=== PATIENT | male | born 1980 | race Caucasian/White ===

== ENCOUNTER → 2023-06-13 | Emergency (ER) | payer SELFPAY ==
[~2023-06-13] MED LIST: LORazepam 2 MG/ML VIAL ONE
--- OUTSIDE RECORDS SUMMARY | 2023-06-13 22:29 | XMS REPORT | Continuity of Care Document ---
Author Name Unknown Address [address] [place] [address] th[address] Address [address] [facility] 1 [address] [place] [address] Care Team Providers Care Foreign Food Cook Specialty Name Role Phone PCP, PATIENT DOES NOT HAVE A Primary Care Physic katt Unavailable FELICIA SLAUGHTER Attending Clinician Unavailable FELICIA SLAUGHTER Attending Clinician Unavailable Bryant Azar MD Attending Clinician [phone] [email or web address] Attending Clinician Unavailab BRYANT Steiner Admitting Clinician Unavailable [email or web address] Admitting Clinician Unavailab ivett Payers Payer Name Policy Type Policy Number Effective Date Expirati on Date Source [employer] PAID BY EMPLOYER - GENERIC PENDING 2023 00:00:00 [employer] (DIRECT BILL) (HGMDA) [id number] Problems Condition Name Condition Details Condition Category Status Onset Date Resolution Date Last Treatment Date Treating Clinician Comments Source Anxiety Anxiety Disease Active 2022-06 00:00: 00 [facility] Chest pain in adult Chest pain in adult Disease Active 2022-06 00:00: 00 [facility] Allergies, Adverse Reactions, Alerts Allergy Name Allergy Type Status Severity Reaction(s) Onset Date Inactive Date Treating Clinician Comments Source Iodinate d Contrast Media Propensi ty to adverse reaction s Active Nausea and/or Vomiting 2022-06 00:00: 00 [facility] IODINATE D CONTRAST MEDIA Drug Class Active N/V 2022-06 00:00: 00 [facility] Social History Social Habit Start Date Stop Date Quantity Comments Source [facility] At 1980 00:00:00 1980 00:00:00 [facility] Smoking Status Start Date Stop Date Source Tobacco smoking consumption unknown [facility] Medications Ordered Medication Name Filled Medication Name Start Date Stop Date Current Medication? Ordering Clinician Indication Dosage Frequency Signature (SIG) Comments Components Source maalox:diph enhydrAMINE :lidocaine 2 % viscous 1:1:1 (FIRST-MOUT HWASH BLM) oral suspension 15 mL 2022-06 15:30: 00 06-07 15:01 :00 No 15mL 15 mL, Oral, ONCE, 1 dose, On 06/07/23 at 0930, REBECCA [facility] hydrOXYzine (ATARAX) tablet 25 mg 2022-06 14:45: 00 06-07 15:01 :00 No 25mg 25 mg, Oral, ONCE, 1 dose, On 06/07/23 at 0845, REBECCA [facility] aspirin chewable tablet 324 mg 2022-06 11:30: 00 06-07 11:39 :00 No 324mg 324 mg, Oral, ONCE, 1 dose, On 06/07/23 at 0530, STAT [facility] aspirin 81 mg chewable tablet 2022-06 05:25: 28 Yes 81mg Take 1 tablet by mouth in the morning. [facility] hydrOXYzine 25 mg tablet 2022-06 00:00: 00 06-10 05:59 :00 Yes [id number] 25mg Take 1 tablet by mouth every 6 (six) hours as needed for Itching or Anxiety for up to 2 days. [facility] Vital Signs Vital Name Observation Time Observation Value Comments Nicole morillo Systolic blood pressure 2023-06-07 14:00:00 144 mm[Hg] [facility] Diastolic blood pressure 2023-06-07 14:00:00 72 mm[Hg] [facility] Heart rate 2023-06-07 14:00:00 60 /min [facility] Respiratory rate 2023-06-07 14:00:00 20 /min [facility] Oxygen saturation in Arterial blood by Pulse oximetry 2023-06-07 14:00:00 94 /min [facility] Body weight 2023-06-07 11:06:00 113.399 kg [facility] Procedures Procedure Date / Time Performed Performing Clinicia n Source TROPONIN I 2023-06-07 15:37:00 Felicia Slaughter [facility] EKG-12 LEAD 2023-06-07 13:14:41 Doe Bryant [facility] XR CHEST 2 VW 2023-06-07 11:50:25 Doe Bryant [facility] TROPONIN I 2023-06-07 11:34:00 Doe Bryant [facility] COMP. METABOLIC PANEL ([id number]) 2023-06-07 11:34:00 King Bryant [facility] CBC WITH DIFF 2023-06-07 11:34:00 [facility] Encounters Start Date/Time End Date/Time Encounter Type Admission Type Attending [facility] Care Facility Care Department Encounter ID Source 2023-06-07 05:10:00 2023-06-07 10:52:00 Emergency X FELICIA SLAUGHTER [facility] ERT [id number] [facility] 2023-06-07 05:10:00 2023-06-07 10:52:00 Emergency Bryant Azar [facility] [id number] [facility] 2020-10-27 10:23:00 2020-10-27 10:23:00 Outpatient GC_HGMDA_Go nzalezJ [facility] [id number] [facility] 2020-10-24 04:30:00 2020-10-24 04:30:00 Outpatient GC_HGMDA_Go nzalezJ [facility] [id number] [facility]
[2023-06-13 23:16] LABS: Absolute Lymphocytes (CBC) 1.5 K/uL (0.7-4.9); Hematocrit 43.3 % (39.6-49.0); Lymphocytes % 16.1 % (15.3-44.8); MCV 88.9 fL (80-100); MPV 8.2 fL (7.6-11.3); Platelets 220 thou/uL (152-406); RBC Red Blood Cell Count 4.87 M/uL (4.33-5.43)
[2023-06-13 23:58] LABS: ALT/SGPT 101 U/L (16-61); AST/SGOT 42 U/L (15-37); Albumin 3.5 g/dL (3.4-5.0); Alkaline Phosphatase 113 U/L (45-117); BUN Blood Urea Nitrogen 13 mg/dL (7-18); Bicarbonate 23 mEq/L (21-32); Bilirubin Total 0.4 mg/dL (0.2-1.0); Glomerular Filtration Rate 92 ml/min (=/>90); Glucose Level 149 mg/dL (74-106); NT PRO-BNP 6 pg/mL (<125); Potassium 3.5 mEq/L (3.5-5.1); Protein, Total 7.4 g/dL (6.4-8.2); Sodium Level 136 mEq/L (136-145); Troponin High Sensitivity 6.8 pg/mL (<58.9)
[2023-06-14 00:04] LABS: Bilirubin Direct < 0.1 mg/dL (0-0.2); Bilirubin Indirect, Calculated ND mg/dL (0.2-0.8)
--- NOTE | 2023-06-14 01:45 | ER ---
Nurse's Notes [facility] Name: Joey Cotton Age: 42 yrs Sex: Male : 1980 Arrival Date: 06/13/2023 Time: 22:25 Bed 13 Private MD: Diagnosis: Dyspnea, anxiety attack Presentation: 06/13 22:56 Chief complaint: EMS states: patient became short of breath at work and was tm6 experiencing palpitations. Patient took nitro x2 prior to EMS arrival. When EMS arrived, SBP was 90. EMS gave 300cc NS bolus. Coronavirus screen: Client denies travel out of the [place] in the last 14 days. Ebola Screen: Patient negative for fever greater than or equal to 101.5 degrees Fahrenheit, and additional compatible Ebola Virus Disease symptoms Patient denies exposure to infectious person. Patient denies travel to an Ebola-affected area in the 21 days before illness onset. No symptoms or risks identified at this time. Initial Sepsis Screen: Does the patient meet any 2 criteria? No. Patient's initial sepsis screen is negative. Does the patient have a suspected source of infection? No. Patient's initial sepsis screen is negative. Risk Assessment: Do you want to hurt yourself or someone else? Patient reports no desire to harm self or others. Onset of symptoms was June 13, 2023. 22:56 Method Of Arrival: EMS: [facility] 6 22:56 Acuity: JIHAN 3 tm6 Triage Assessment: 23:05 General: Appears uncomfortable, Behavior is cooperative, anxious. Pain: Denies pain. tm6 EENT: No signs and/or symptoms were reported regarding the EENT system. Neuro: Level of Consciousness is awake, alert, obeys commands, Oriented to person, place, time, situation. Cardiovascular: Capillary refill < 3 seconds Patient's skin is warm and dry. Rhythm is sinus rhythm. Respiratory: Reports shortness of breath at rest Airway is patent Respiratory effort is even, unlabored, Respiratory pattern is regular, symmetrical, Onset: The symptoms/episode began/occurred today, the patient has mild shortness of breath. GI: Abdomen is flat, non-distended. : No signs and/or symptoms were reported regarding the genitourinary system. Derm: No signs and/or symptoms reported regarding the dermatologic system. Musculoskeletal: No signs and/or symptoms reported regarding the musculoskeletal system. Historical: - Allergies: 23:05 Iodinated Contrast Media - IV Dye; tm6 - PMHx: 23:05 Hypertensive disorder; tm6 - PSHx: 23:05 Cholecystectomy; Stented artery; tm6 - Immunization history:: Client reports having NOT received the Covid vaccine. Flu vaccine is not up to date. It has been more than one year since last vaccine. - Social history:: Smoking status: Patient reports use of chewing tobacco. Patient/guardian denies using alcohol. Screenin:07 [facility] ED Fall Risk Assessment (Adult) History of falling in the last 3 months, tm6 including since admission No falls in past 3 months (0 pts). Abuse screen: Denies threats or abuse. Denies injuries from another. Nutritional screening: No deficits noted. Tuberculosis screening: No symptoms or risk factors identified. Assessment: 23:07 Reassessment: see triage assessment. tm6 23:39 Reassessment: Patient appears in no apparent distress at this time. Patient and/or tm6 family updated on plan of care and expected duration. Pain level reassessed. Patient is alert, oriented x 3, equal unlabored respirations, skin warm/dry/pink. 06/14 00:07 Reassessment: patient stated he feels anxious. "I feel like my heart is beating fast tm6 and I'm gasping for breath.". 00:45 Reassessment: Patient reports no longer feeling anxious. tm6 01:39 Reassessment: Patient and/or family updated on plan of care and expected duration. Pain tm6 level reassessed. Patient is alert, oriented x 3, equal unlabored respirations, skin warm/dry/pink. Patient states feeling better. 02:00 Reassessment: Patient appears in no apparent distress at this time. Patient states tm6 feeling better. Vital Signs: 06/13 22:56 BP 134 / 79; Pulse 73; Resp 17; Temp 99.4(O); Pulse Ox 96% on R/A; Weight 117.03 kg; tm6 Height 6 ft. 1 in. ; Pain 0/10; 23:38 BP 129 / 75; Pulse 64; Resp 15; Pulse Ox 98% on R/A; tm6 06/14 00:07 BP 135 / 87; Pulse 73; Resp 12; Pulse Ox 96% on R/A; tm6 00:45 BP 126 / 81; Pulse 71; Resp 19; Pulse Ox 97% on R/A; tm6 01:39 BP 120 / 80; Pulse 58; Resp 13; Pulse Ox 96% on R/A; tm6 01:59 BP 118 / 73; Pulse 73; Resp 21; Pulse Ox 98% on R/A; tm6 06/13 22:56 Body Mass Index 34.04 (117.03 kg, 185.42 cm) tm6 06/13 22:56 Pain Scale: Adult tm6 ED Course: 06/13 22:31 Patient arrived in ED. jb4 22:33 Gagan Ferris MD is Attending Physician. sp3 22:44 Maryse Miller, RN is Primary Nurse. tm6 22:48 XRAY Chest (1 view) In Process Unspecified. EDMS 22:58 Triage completed. tm6 23:05 Arm band placed on right wrist. EKG completed in triage. Results shown to MD. tm6 23:07 Patient has correct armband on for positive identification. Bed in low position. Call tm6 light in reach. Side rails up X2. Provided Education on: plan of care. Client placed on continuous cardiac and pulse oximetry monitoring. NIBP monitoring applied. site monitor on. Door closed. Noise minimized. Lights dimmed. Warm blanket given. 23:07 No provider procedures requiring assistance completed. Maintain EMS IV. Dressing tm6 intact. Good blood return noted. Site clean \\T\\ dry. Gauge \\T\\ site: 20g RAC. 06/14 02:01 IV discontinued, intact, bleeding controlled, No redness/swelling at site. Pressure tm6 dressing applied. Administered Medications: 00:06 Drug: Ativan IVP 1 mg IVP once Route: IVP; Site: right antecubital; tm6 Medication: 06/13 23:07 VIS not applicable for this client. tm6 Outcome: 06/14 01:45 Discharge ordered by . sp3 02:01 Discharged to home ambulatory, tm6 02:01 Condition: stable 02:01 Discharge instructions given to patient, Instructed on discharge instructions, follow up and referral plans. Demonstrated understanding of instructions, follow-up care, 02:10 Patient left the ED. tm6 Signatures: Dispatcher [employer] [facility] Naveen Perez, JENNIFER RN jb4 Gagan Ferris MD MD sp3 Maryse Miller, RN RN tm6
--- NOTE | 2023-06-14 01:45 | EDPHYS ---
Physician Documentation [facility] Name: Joey Cotton Age: 42 yrs Sex: Male : 1980 Arrival Date: 06/13/2023 Time: 22:25 Bed 13 Private MD: ED Physician Gagan Ferris HPI: 06/13 22:47 This 42 yrs old Male presents to ER via Unassigned with complaints of "anxiety attack" sp3 shortness of breath. 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 Patient states that he took some "dip" and after that he became anxious. This happened 1 week ago when he also took the same tobacco product. All symptoms are now resolved. Patient did not and currently does not have chest pain, back pain, jaw pain, left arm pain, or any other anginal equivalents. All symptoms are fully resolved at this point. Review of systems are negative for headache, fever, URI symptoms, cough, chest pain, back pain, abdominal pain, nausea, vomiting, diarrhea, syncope, near syncope, known sick contacts, travel history, prolonged immobilization, or any other signs or symptoms at this time.. Historical: - Allergies: 23:05 Iodinated Contrast Media - IV Dye; tm6 - PMHx: 23:05 Hypertensive disorder; tm6 - PSHx: 23:05 Cholecystectomy; Stented artery; tm6 - Immunization history:: Client reports having NOT received the Covid vaccine. Flu vaccine is not up to date. It has been more than one year since last vaccine. - Social history:: Smoking status: Patient reports use of chewing tobacco. Patient/guardian denies using alcohol. ROS: 22:48 Constitutional: Negative for fever, chills, and weight loss, Eyes: Negative for injury, sp3 pain, redness, and discharge, ENT: Negative for injury, pain, and discharge, Neck: Negative for injury, pain, and swelling, Abdomen/GI: Negative for abdominal pain, nausea, vomiting, diarrhea, and constipation, Back: Negative for injury and pain, MS/Extremity: Negative for injury and deformity, Skin: Negative for injury, rash, and discoloration, Neuro: Negative for headache, weakness, numbness, tingling, and seizure, Psych: Negative for depression, anxiety, suicide ideation, homicidal ideation, and hallucinations, Allergy/Immunology: Negative for hives, rash, and allergies, Endocrine: Negative for neck swelling, polydipsia, polyuria, polyphagia, and marked weight changes, Hematologic/Lymphatic: Negative for swollen nodes, abnormal bleeding, and unusual bruising, 22:48 All other systems are negative, Exam: 22:48 Constitutional: This is a well developed, well nourished patient who is awake, alert, sp3 and in no acute distress. Head/Face: Normocephalic, atraumatic. Eyes: Pupils equal round and reactive to light, extra-ocular motions intact. Lids and lashes normal. Conjunctiva and sclera are non-icteric and not injected. Cornea within normal limits. Periorbital areas with no swelling, redness, or edema. ENT: Nares patent. No nasal discharge, no septal abnormalities noted. External auditory canals are clear. Oropharynx with no redness, swelling, or masses, exudates, or evidence of obstruction, uvula midline. Mucous membranes moist. Neck: Trachea midline, no thyromegaly or masses palpated, and no cervical lymphadenopathy. Supple, full range of motion without nuchal rigidity, or vertebral point tenderness. No Meningismus. Chest/axilla: Normal chest wall appearance and motion. Nontender with no deformity. No lesions are appreciated. Cardiovascular: Regular rate and rhythm with a normal S1 and S2. No gallops, murmurs, or rubs. Normal PMI, no JVD. No pulse deficits. Respiratory: Lungs have equal breath sounds bilaterally, clear to auscultation and percussion. No rales, rhonchi or wheezes noted. No increased work of breathing, no retractions or nasal flaring. Abdomen/GI: Soft, non-tender, with normal bowel sounds. No distension or tympany. No guarding or rebound. No evidence of tenderness throughout. Back: No spinal tenderness. No costovertebral tenderness. Full range of motion. Skin: Warm, dry with normal turgor. Normal color with no rashes, no lesions, and no evidence of cellulitis. MS/ Extremity: Pulses equal, no cyanosis. Neurovascular intact. Full, normal range of motion. Neuro: Awake and alert, GCS 15, oriented to person, place, time, and situation. Cranial nerves II-XII grossly intact. Motor strength 5/5 in all extremities. Sensory grossly intact. Cerebellar exam normal. Normal gait. Psych: Awake, alert, with orientation to person, place and time. Behavior, mood, and affect are within normal limits. 22:48 ECG was reviewed by the Attending Physician. EKG demonstrates normal sinus rhythm at 76 bpm with normal intervals, normal axis, normal QRS, nonspecific diffuse ST/T's changes without evidence of acute ischemia. Vital Signs: 22:56 BP 134 / 79; Pulse 73; Resp 17; Temp 99.4(O); Pulse Ox 96% on R/A; Weight 117.03 kg; tm6 Height 6 ft. 1 in. ; Pain 0/10; 23:38 BP 129 / 75; Pulse 64; Resp 15; Pulse Ox 98% on R/A; tm6 06/14 00:07 BP 135 / 87; Pulse 73; Resp 12; Pulse Ox 96% on R/A; tm6 00:45 BP 126 / 81; Pulse 71; Resp 19; Pulse Ox 97% on R/A; tm6 01:39 BP 120 / 80; Pulse 58; Resp 13; Pulse Ox 96% on R/A; tm6 01:59 BP 118 / 73; Pulse 73; Resp 21; Pulse Ox 98% on R/A; tm6 06/13 22:56 Body Mass Index 34.04 (117.03 kg, 185.42 cm) tm6 06/13 22:56 Pain Scale: Adult tm6 MDM: 06/13 22:33 Patient medically screened. sp3 22:49 Data reviewed: vital signs, nurses notes, lab test result(s), EKG, radiologic studies. sp3 ED course: 42-year-old male with probable nicotine induced anxiety attack/dyspnea which is now fully resolved. I am not highly suspicious that this is a cardiac event. EKG is normal. We will obtain chest x-ray and laboratory values including cardiac enzymes/markers. Clinically have also ruled out pneumonia, PE, aortic pathology including dissection or aneurysm, or any other critical process including sepsis and shock. Disposition pending workup and patient course with probable discharge.. 06/14 01:00 ED course: Patient is improved after Ativan. He denies current chest pain. Will obtain sp3 second troponin and repeat EKG and if negative, we will safely discharge him home.. 01:40 ED course: Repeat troponin is negative. Repeat EKG demonstrates normal sinus rhythm at sp3 62 bpm with normal intervals, normal QRS, normal axis and continued nonspecific diffuse ST/T changes without any evidence of acute ischemia and with no significant changes from EKG #1 performed earlier today. Patient continues to be stable with normal vital signs and we will safely discharge him home at this time.. 06/13 22:33 Order name: Basic Metabolic Panel; Complete Time: 00: sp3 06/13 22:33 Order name: CBC with Diff; Complete Time: 00: sp3 06/13 22:33 Order name: LFT's; Complete Time: 00: sp3 06/13 22:33 Order name: Magnesium; Complete Time: 00: sp3 06/13 22:33 Order name: NT PRO-BNP; Complete Time: 00: sp3 06/13 22:33 Order name: Troponin HS; Complete Time: 00: sp3 06/14 00:59 Order name: Troponin High Sensitivity; Complete Time: :33 sp3 06/13 22:33 Order name: XRAY Chest (1 view) sp3 06/13 22:33 Order name: EKG; Complete Time: 22:34 sp3 06/14 00:59 Order name: EKG; Complete Time: 01:00 sp3 06/13 22:33 Order name: Cardiac monitoring; Complete Time: 22:44 sp3 06/13 22:33 Order name: EKG - Nurse/Tech; Complete Time: 22:44 sp3 06/13 22:33 Order name: IV Saline Lock; Complete Time: 22:44 sp3 06/13 22:33 Order name: Labs collected and sent; Complete Time: 23:04 sp3 06/13 22:33 Order name: O2 Per Protocol; Complete Time: 22:44 sp3 06/13 22:33 Order name: O2 Sat Monitoring; Complete Time: :44 sp3 06/14 00:59 Order name: EKG - Nurse/Tech; Complete Time: :20 sp3 Administered Medications: 00:06 Drug: Ativan IVP 1 mg IVP once Route: IVP; Site: right antecubital; tm6 Disposition Summary: 06/14/23 01:45 Discharge Ordered Notes: Location: Home sp3 Condition: Stable sp3 Diagnosis - Dyspnea, anxiety attack sp3 Followup: sp3 - With: Private Physician - When: Upon discharge from the Emergency Department - Reason: Continuance of care Discharge Instructions: - Discharge Summary Sheet sp3 - Managing Anxiety, Adult sp3 Forms: - Medication Reconciliation Form sp3 - Thank You Letter sp3 - Antibiotic Education sp3 - Prescription Opioid Use sp3 - Patient Portal Instructions sp3 - Leadership Thank You Letter sp3 - Work release form tm6 Signatures: Dispatcher [employer] Gagan López MD MD sp3 Maryse Miller RN RN tm6
[2023-06-14 02:36] VITALS: TEMP 99.4
[2023-06-14 02:42] VITALS: BP 118/73; O2SAT 98
--- NOTE | 2023-06-14 19:13 | RAD REPORT ---
EXAM DESCRIPTION: RAD - Chest Single View - 06/13/2023 10:47 pm CLINICAL HISTORY: DYSPNEA TECHNIQUE: AP chest COMPARISON: None available for comparison FINDINGS: CHEST: Heart: The cardiomediastinal silhouette is within normal limits. Lungs: No focal consolidation. Mediastinum: Unremarkable Pleura: No appreciable effusion. No pneumothorax. Bones: Intact IMPRESSION: No acute cardiopulmonary disease. Electronically signed by: Marcelo Larson MD 06/13/2023 11:11 PM TUBE W[employer]ER Due to temporary technical issues with the PACS/Fluency reporting system, reports are being signed by the in house radiologists without review as a courtesy to insure prompt reporting. The interpreting radiologist is fully responsible for the content of the report.
== END ==
LOC: ER 22:25
DX: F41.0 Panic disorder [episodic paroxysmal anxiety] (principal)
CPT/HCPCS: 36415; 71045; 80048; 80076; 83735; 83880; 84484; 85025; 96374; 99285

== ENCOUNTER → 2023-06-14 | Emergency (ER) | payer SELFPAY ==
--- OUTSIDE RECORDS SUMMARY | 2023-06-14 15:37 | XMS REPORT | Continuity of Care Document ---
Author Name Unknown Address [address] [facility]. [address] th[address] Address [address] [facility] 1 [address] [place] [address] Care Team Providers Care E Learning Developer Name Role Phone PCP, PATIENT DOES NOT HAVE A Primary Care Physic FELICIA Diaz Attending Clinician Unavailable FELICIA SLAUGHTER Attending Clinician Unavailable Bryant Azar MD Attending Clinician [phone] LACHELLE_HGMDA_WesJ Attending Clinician UnavailBRYANT Chan Admitting Clinician Unavailable LACHELLE_MEERAMDNicole_Brandi Admitting Clinician Unavailab root Payers Payer Name Policy Type Policy Number Effective Date Expirati on Date Source [employer] PA[employer] BY [employer]ER - GENERIC PENDING 2023 00:00:00 [employer] (DIRECT BILL) (HGMDA) [id number] Problems Condition Name Condition Details Condition Category Status Onset Date Resolution Date Last Treatment Date Treating Clinician Comments Source Anxiety Anxiety Disease Active 2022-06 00:00: 00 [facility] Chest pain in adult Chest pain in adult Disease Active 2022-06 00:00: 00 [facility] Allergies, Adverse Reactions, Alerts Allergy Name Allergy Type Status Severity Reaction(s) Onset Date Inactive Date Treating Clinician Comments Source Iodinate d Contrast Media Propensi ty to adverse reaction s Active Nausea and/or Vomiting 2022-06 00:00: 00 [facility] IODINATE D CONTRAST MEDIA Drug Class Active N/V 2022-06 00:00: 00 [facility] Social History Social Habit Start Date Stop Date Quantity Comments Source Sexual orientation U [facility] Sex Assigned At 1980 00:00:00 1980 00:00:00 [facility] Smoking Status Start Date Stop Date Source Tobacco smoking consumption unknown [facility] Medications Ordered Medication Name Filled Medication Name Start Date Stop Date Current Medication? Ordering Clinician Indication Dosage Frequency Signature (SIG) Comments Components Source maalox:diph enhydrAMINE :lidocaine 2 % viscous 1:1:1 (FIRST-MOUT HWASH BLM) oral suspension 15 mL 2022-06 15:30: 00 06-07 15:01 :00 No 15mL 15 mL, Oral, ONCE, 1 dose, On 06/07/23 at 0930, REBECCA [facility] hydrOXYzine (ATARAX) tablet 25 mg 2022-06 14:45: 00 06-07 15:01 :00 No 25mg 25 mg, Oral, ONCE, 1 dose, On 06/07/23 at 0845, [facility] aspirin chewable tablet 324 mg 2022-06 11:30: 00 06-07 11:39 :00 No 324mg 324 mg, Oral, ONCE, 1 dose, On 06/07/23 at 0530, STAT [facility] aspirin 81 mg chewable tablet 2022-06 05:25: 28 Yes 81mg Take 1 tablet by mouth in the morning. [facility] hydrOXYzine 25 mg tablet 2022-06 00:00: 00 06-10 05:59 :00 Yes [id number] 25mg Take 1 tablet by mouth every 6 (six) hours as needed for Itching or Anxiety for up to 2 days. [facility] Vital Signs Vital Name Observation Time Observation Value Comments Nicole morillo Systolic blood pressure 2023-06-07 14:00:00 144 mm[Hg] [facility] Diastolic blood pressure 2023-06-07 14:00:00 72 mm[Hg] [facility] Heart rate 2023-06-07 14:00:00 60 /min [facility] Respiratory rate 2023-06-07 14:00:00 20 /min [facility] Oxygen saturation in Arterial blood by Pulse oximetry 2023-06-07 14:00:00 94 /min [facility] Body weight 2023-06-07 11:06:00 113.399 kg [facility] Procedures Procedure Date / Time Performed Performing Clinicia n Source TROPONIN I 2023-06-07 15:37:00 Felicia Slaughter [facility] EKG-12 LEAD 2023-06-07 13:14:41 Doe Bryant [facility] XR CHEST 2 VW 2023-06-07 11:50:25 [facility] TROPONIN I 2023-06-07 11:34:00 Doe Bryant [facility] COMP. METABOLIC PANEL ([id number]) 2023-06-07 11:34:00 [place] Bryant [facility] CBC WITH DIFF 2023-06-07 11:34:00 [place] [facility] Encounters Start Date/Time End Date/Time Encounter Type Admission Type Attending [facility] Care Facility Care Department Encounter ID Source 2023-06-07 05:10:00 2023-06-07 10:52:00 Emergency X FELICIA SLAUGHTER [facility] ERT [id number] [facility] 2023-06-07 05:10:00 2023-06-07 10:52:00 Emergency Bryant Azar [facility] [id number] [facility] 2020-10-27 10:23:00 2020-10-27 10:23:00 Outpatient GC_HGMDA_Go nzalezJ PRIV PRIV [id number] [facility] 2020-10-24 04:30:00 2020-10-24 04:30:00 Outpatient GC_HGMDA_Go nzalezJ PRIV PRIV [id number] [facility]
--- NOTE | 2023-06-14 17:40 | ER ---
Nurse's Notes [facility] Name: Joey Cotton Age: 42 yrs Sex: Male : 1980 Arrival Date: 06/14/2023 Time: 15:34 Bed IW7 Private MD: Diagnosis: Presentation: 06/14 16:19 Chief complaint: Patient states: Seen last night, discharged with Anxiety, doesn't feel jl7 anxious, reports after eating feeling like BP drops and "I can hear my heart beat in my ears." Hx of 98% blockage to LAD at 37 years old, does not take medications at this point. Coronavirus screen: At this time, the client does not indicate any symptoms associated with coronavirus-19. Ebola Screen: No symptoms or risks identified at this time. Initial Sepsis Screen: Does the patient meet any 2 criteria? No. Patient's initial sepsis screen is negative. Does the patient have a suspected source of infection? No. Patient's initial sepsis screen is negative. Risk Assessment: Do you want to hurt yourself or someone else? Patient reports no desire to harm self or others. Onset of symptoms is unknown. 16:19 Method Of Arrival: Ambulatory [facility] 16:19 Acuity: JIHAN 2 jl7 Historical: - Allergies: 16:22 Iodinated Contrast Media - IV Dye; jl7 - Home Meds: 16:22 aspirin 81 mg oral tablet, delayed release (enteric coated) [Active]; jl7 - PMHx: 16:22 Hypertensive disorder; jl7 - PSHx: 16:22 Cholecystectomy; Stented artery; jl7 - Immunization history:: Adult Immunizations unknown. - Social history:: Smoking status: Patient reports use of chewing tobacco. Assessment: 17:20 Reassessment: called from [facility], no answer. jl7 17:30 Reassessment: called from [employer] no answer. jl7 17:39 Reassessment: called from lobby no answer. 7 Vital Signs: 16:19 BP 147 / 93; Pulse 94; Resp 17; Temp 97; Pulse Ox 97% ; Weight 117.48 kg; Height 6 ft. jl7 1 in. ; Pain 0/10; 16:19 Body Mass Index 34.17 (117.48 kg, 185.42 cm) jl7 16:19 Pain Scale: Adult jl7 ED Course: 15:36 Patient arrived in ED. im 16:22 Triage completed. jl7 16:22 Arm band placed on right wrist. Patient placed in waiting room, Patient notified of jl7 wait time. EKG completed in triage. Results shown to . 16:29 Chad Loomis MD is Attending Physician. [facility] 17:39 Patient's name was called from ER lobby. No response. Unable to locate patient. Will jl7 disposition as left without being seen by a provider. Administered Medications: No medications were administered Outcome: 17:39 Patient left the ED. jl7 Signatures: Chad Loomis MD MD cha Leal, Jahala, RN RN jl7 Diamante Farr im
[2023-06-14 18:52] VITALS: BP 147/93; TEMP 97; O2SAT 97
== END ==
LOC: ER 15:34
DX: Z53.21 Procedure and treatment not carried out due to patient leaving prior to being seen by health care provider (principal)
CPT/HCPCS: 93005; 99282

== ENCOUNTER 2023-10-31 05:59 | Emergency (ER) | payer OTHER ==
--- OUTSIDE RECORDS SUMMARY | 2023-10-31 06:02 | XMS REPORT | Continuity of Care Document ---
Author Name Unknown Address [address] [facility] [address] [place], [place] [address] [place] [address] [facility] Address [address] [facility] [address] [place] [address] Care Team Providers Care Patient Care Technician Instructor Name Role Phone PCP, PATIENT DOES NOT HAVE A Primary Care Physic katt Unavailable FELICIA SLAUGHTER Attending Clinician Unavailable FELICIA SLAUGHTER Attending Clinician Unavailable Bryant Azar MD Attending Clinician [phone] Kaylen Ovalles Attending Clinician Unavailable LACHELLE_HGMDA_Brandi Attending Clinician Unavailab BRYANT Steiner Admitting Clinician Unavailable Physician, No Primary or Family Admitting Clinic katt Unavailable LACHELLE_HGMDA_WesJ Admitting Clinician Unavailab root Payers Payer Name Policy Type Policy Number Effective Date Expirati on Date Source [employer] PAID BY EMPLOYER - GENERIC PENDING 2023 00:00:00 [employer] (DIRECT BILL) (HGMDA) [id number] Problems Condition Name Condition Details Condition Category Status Onset Date Resolution Date Last Treatment Date Treating Clinician Comments Source Anxiety Anxiety Disease Active 2022-06 00:00: 00 [facility] Chest pain in adult Chest pain in adult Disease Active 2022-06 00:00: 00 [facility] Allergies, Adverse Reactions, Alerts Allergy Name Allergy Type Status Severity Reaction(s) Onset Date Inactive Date Treating Clinician Comments Source IODINATE D CONTRAST MEDIA Drug Class Active N/V 2022-06 00:00: 00 [facility] Iodinate d Contrast Media Propensi ty to adverse reaction s Active Nausea and/or Vomiting 2022-06 00:00: 00 [facility] CONTRAST DYE DA Active MO VOMITING 08-12 00:00: [address] [facility] Social History Social Habit Start Date Stop Date Quantity Comments Source [facility] Sex [facility] At 1980 00:[facility]:00 1980 00:00:00 [facility] Smoking Status Start Date Stop Date Source Tobacco smoking consumption unknown [facility] Medications Ordered Medication Name Filled Medication Name Start Date Stop Date Current Medication? Ordering Clinician Indication Dosage Frequency Signature (SIG) Comments Components Source maalox:diph enhydrAMINE :lidocaine 2 % viscous 1:1:1 (FIRST-MOUT HWASH BLM) oral suspension 15 mL 2022-06 15:30: 00 06-07 15:01 :00 No 15mL 15 mL, Oral, ONCE, 1 dose, On 06/07/23 at 0930, REBECCA [facility] hydrOXYzine (ATARAX) tablet 25 mg 2022-06 14:45: 00 06-07 15:01 :00 No 25mg 25 mg, Oral, ONCE, 1 dose, On 06/07/23 at 0845, REBECCA [facility] aspirin chewable tablet 324 mg 2022-06 11:30: 00 06-07 11:39 :00 No 324mg 324 mg, Oral, ONCE, 1 dose, On 06/07/23 at 0530, STAT [facility] aspirin 81 mg chewable tablet 2022-06 05:25: 28 Yes 81mg Take 1 tablet by mouth in the morning. [facility] hydrOXYzine 25 mg tablet 2022-06 00:00: 00 06-10 05:59 :00 No [id number] 25mg Take 1 tablet by mouth every 6 (six) hours as needed for Itching or Anxiety for up to 2 days. [facility] Vital Signs Vital Name Observation Time Observation Value Comments S ource Systolic blood pressure 2023-06-07 14:00:00 144 mm[Hg] [facility] Diastolic blood pressure 2023-06-07 14:00:00 72 mm[Hg] [facility] Heart rate 2023-06-07 14:00:00 60 /min [facility] Respiratory rate 2023-06-07 14:00:00 20 /min [facility] Oxygen saturation in Arterial blood by Pulse oximetry 2023-06-07 14:00:00 94 /min [facility] Body weight 2023-06-07 11:06:00 113.399 kg [facility] Procedures Procedure Date / Time Performed Performing Clinicia n Source TROPONIN I 2023-06-07 15:37:00 Felicia Slaughter [facility] EKG-12 LEAD 2023-06-07 13:14:41 Doe Bryant [facility] XR CHEST 2 VW 2023-06-07 11:50:25 Doe Bryant [facility] TROPONIN I 2023-06-07 11:34:00 Doe Bryant [facility] COMP. METABOLIC PANEL ([id number]) 2023-06-07 11:34:00 Doe [facility] CBC WITH DIFF 2023-06-07 11:34:00 [place] Bryant [facility] Encounters Start Date/Time End Date/Time Encounter Type Admission Type Attending Clinicians Care Facility Care Department Encounter ID Source 2023-06-07 05:10:00 2023-06-07 10:52:00 Emergency X FELICIA SLAUGHTER [facility] ERT [id number] [facility] 2023-06-07 05:10:00 2023-06-07 10:52:00 Emergency Braynt Azar [facility] [id number] [facility] 2022-08-12 01:42:00 2022-08-12 05:21:00 Emergency EM Kaylen Ovalles [facility] ALISSA [id number] [facility] 2020-10-27 10:23:00 2020-10-27 10:23:00 Outpatient GC_HGMDA_Go nzalezJ PRIV PRIV [id number] [facility] 2020-10-24 04:30:00 2020-10-24 04:30:00 Outpatient GC_HGMDA_Go nzalezJ PRIV PRIV [id number] [facility] Results Test Description Test Time Test Comments Results Resul t Comments Source - CT ABD PELVIS W/CONT 2022-08-12 04:26:00 [facility] 1980 Sex: M Calos tient Name: RADHA CADENA Unit No: [id number] EXAMS: CPT CODE: [id number] CT ABD PELVIS W/CONT 03327 EXAM: - CT ABD PELVIS W/CONT INDICATION: 41 years -old Male with Abd Pain + n/v, hx cholecystectomy. TECHNIQUE: Contrast - IV contrast was given. No oral contrast was given Portal venous phase - abdomen and pelvis No delayed phase images were obtained. Reconstructions - coronal and sagittal planes Automated exposure reduction (Auto mA/Smart mA) was utilized in compliance with ACR Image Wisely COMPARISON: None FINDINGS: Statements: None. Thoracic: Included images of the lower chest demonstrate no abnormalities. Hepatobiliary: There is fatty infiltration of the liver. Cholecystectomy clips are present. No biliary dilation. Pancreas: Normal. Spleen: Normal. Adrenals: Normal. Genitourinary: The kidneys are normal. No evidence of hydronephrosis. Evaluation of the bladder is limited, but no obvious bladder abnormality is present. Gastrointestinal: No bowel obstruction or perienteric inflammation. The appendix is normal. Vascular: No evidence of aneurysm or dissection. Bones/Soft Tissues: No acute osseous findings. No ventral hernias. Peritoneum/Other: No extraluminal fluid. IMPRESSION: 1. Normal appendix. No acute inflammatory process. No other acute abnormalities. Name: RADHA CADENA [facility] Phys: Kaylen Aguero MD [address] : 1980 Age: 41 Sex: M [place] [address] Loc: P.ERS Exam Date: 08/12/2022 Status: REG ER PH: FAX: PAGE 1 Signed Report (CONTINUED) Patient Name: RADHA CADENA Unit No: [id number] EXAMS: CPT CODE: [id number] CT ABD PELVIS W/CONT 56298 (Continued) at 0426 Reported and signed by: MISAEL DOMINGUEZ M.D. CC: Kaylen Ovalles MD Technologist: QUINN TRAN CTDI: 8.57 DLP: 647 Trscr Dt/Tm: 08/12/2022 (042) by:[email or web address] Printed Date/Time: 08/12/2022 (042) [facility] Kaylen Aguero MD [address] DOB: 1980 Age: 41 Sex: M [place] [address] Loc: P.ERS Exam Date: 08/12/2022 Status: REG ER PH: FAX: PAGE 2 Signed Report [id number] 03:17:00* Test Item Value Reference Range Interpretation Comme nts LIPASE (test code = LIP) 45 U/L 12-53 N [id number] 03:14:00* Test Item Value Reference Range Interpretation Comme nts TROPONIN-I (test code = TROPI) 2.8 pg/mL 38.73-80.22 L URINALYSIS [id number] 03:11:00* Test Item Value Reference Range Interpretation Comme nts UA COLOR (test code = COLU) YELLOW DISCRIPT YELLOW UA APPEARANCE (test code = APPU) CLEAR DISCRIPT CLEAR UA GLUCOSE DIPSTICK (test code = DGLUU) NEGATIVE mg/dL NEGATIVE UA BILIRUBIN DIPSTICK (test code = BILU) NEGATIVE NEGATIVE UA KETONE DIPSTICK (test cod e = KETU) NEGATIVE mg/dL NEGATIVE UA SPECIFIC GRAVITY (test code = SGU) 1.015 1.005-1.030 UA BLOOD DIPSTICK (test code = DEVENDRA) NEGATIVE NEGATIVE UA PH DIPSTICK (test code = DREW) 6.0 5.0-9.0 UA PROTEIN DIPSTICK (test code = PROU) NEGATIVE mg/dL NEGATIVE UA UROBILINOGEN DIPSTICK (test code = URO) 0.2 mg/dL 0.2-1.0 UA NITRITE DIPSTICK (test code = DANILO) NEGATIVE NEGATIVE UA LEUKOCYTE ESTERASE DIPSTICK (test code = LEUU) NEGATIVE NEGATIVE CBC W/AUTO [id number] 02:58:00* Test Item Value Reference Range Interpretation Comme nts WHITE BLOOD CELL (test code = WBC) 12.4 x10 3/uL 4.8-10.8 H RED BLOOD CELL (test code = RBC) 5.16 x10 6/uL 4.70-6.10 N HEMOGLOBIN (test code = HGB) 15.4 g/dL 14.0-18.0 N HEMATOCRIT (test code = HCT) 45.2 % 42.0-52.0 N MEAN CELL VOLUME (test code = MCV) 87.6 fL 80.0-94.0 N MEAN CELL HGB (test code = MCH) 29.8 pg 27-31 N MEAN CELL HGB CONCENTRATION (test code = MCHC) 34.1 G/DL 33-36.5 N RED CELL DISTRIBUTION WIDTH (test code = RDW) 12.2 % 12.9-16.9 L PLATELET COUNT (test code = PLT) 286 x10 3/uL 150-440 N MEAN PLATELET VOLUME (test c ode = MPV) 9.8 fL 8.9-12.4 N NEUTROPHIL % (test code = NT%) 54.3 % 42.2-75.2 N LYMPHOCYTE % (test code = LY%) 32.4 % 20.5-51.1 N MONOCYTE % (test code = MO%) 7.1 % 1.7-9.3 N EOSINOPHIL % (test code = EO%) 5.3 % 0.0-7.0 N BASOPHIL % (test code = BA%) 0.6 % 0-2.5 N NEUTROPHIL # (test code = NT#) 6.72 x10 3/uL 1.80-7.70 N LYMPHOCYTE # (test code = LY#) 4.01 x10 3/uL 1.00-4.80 N MONOCYTE # (test code = MO#) 0.88 x10 3/uL 0.00-0.80 H EOSINOPHIL # (test code = EO#) 0.65 x10 3/uL 0.00-0.45 H BASOPHIL # (test code = BA#) 0.07 x10 3/uL 0.0-0.20 N - XR CHEST 1 [id number] 02:25:00 [facility] 1980 Sex: MPatient Name: RADHA CADENA Unit No: [id number] EXAMS: CPT CODE: [id number] XR CHEST 1 V [address] Exam: AP chest Location: H 12 History: epigastric chest pain. sharp. Comparison: None. Findings: The lungs are clear. No infiltrate or effusion is seen. The pulmonary vasculature is normal. The heart sizeis normal. The mediastinal silhouette is unremarkable. The bony thorax is intact. Impression: No acute disease. at 0225 Reported and signed by: BAMBI MCKOY M.D. CC: Tete Ovalles MD Technologist: QUINN Bill Time: DAP (Gy m2): Air Kerma (mGy): Trscr Dt/Tm: 08/12/2022 (0225) by:JersonFC Printed Date/Time: 08/12/2022 (227) Name: RADHA CADENA [facility] Phys: CHECH.08 - Kaylen Ovalles MD [address] : 1980 Age: 41 Sex: [place] [address] Loc: P.ERS Exam Date: 08/12/2022 Status: PRE ER PH: FAX: PAGE 1 Signed Report Notes Date/Time Note Provider Source 2022-08-12 01:53:00 [id number]:53:00 [facility] ([facility])EMERGENCY PROVIDER REPORTREPORT#:[id number] REPORT STATUS: SignedDATE:08/12/22 TIME: 152 PATIENT: RADHA CADENA UNIT #: [id number]#: [id number] ROOM: BED:AGE: 41 SEX: M PCP PHYS: No Primary or Family PhysicianSERVICE AUTHOR: Kaylen Ovalles MD * ALL edits or amendments must be made on the electronic/computer document * HPI-General Illness Free Text HPI NotesFree Text HPI Uqaou22-pcvb-wvr male who endorses prior medical history of CAD, hypertension, hyperlipidemia presents to [facility] ER for evaluation. He states that for the last 3days or so, he has been having sharp epigastric and upper abdominal pain radiating up into his lower mid chest. The pain worsens whenever he eats or drinks. He states that it waxes and wanes and currently he is pain-free. Associate with 1 of episode of nausea and several episodes of diarrhea. Denies any hematochezia or melena. Denies any fever, chills, other chest pain or pressure, shortness of breath, dysuria or other complaints at this time. GeneralInitial Greet Date/Time 08/12/22 0151 PresentationChief Complaint Abdominal pain Review of Systems Free Text ROS NotesFree Text ROS NotesConstitutional:Denies: Chills, Fatigue. Eyes:Denies: Blurry Vision, Diplopia. ENT:Denies: Sinus problem, Sore throat. Respiratory:Denies: Cough, Shortness of breath. Cardiovascular:Denies: Palpitations. GI: + Abdominal pain, Nausea, Vomiting. : Denies: Dysuria, Flank pain. Musculoskeletal:Denies: Extremity Pain, Laceration. HematologicDenies: Bleeding. NeurologicDenies: Change LOC, Confusion, Slurred speech. Past Medical History - AdultStated Complaint ABD PAIN W/ VOMITING X 1,HAVE HEART STENT TOOAllergiesUncoded Allergies:CONTRAST DYE (Intermediate, VOMITING 08/12/22) Home MedicationsReported MedicationslisinopriL (Zestril) 20 MG PO DAILY Rosuvastatin 20 MG PO BEDTIME Aspirin Ec 81 MG PO DAILY Past Medical History:Reports: Coronary artery disease, Hypertension, Dyslipidemia. Smoking status for patients 13 years old or older: Current every day smoker Physical Exam Vital SignsVital SignsFirst Documented: Result Date Time Pulse Ox 96 08/12 0145 B/P 127/80 08/12 0145 B/P Mean 95 08/12 0145 O2 Delivery Room air 08/12 144 Temp 36.4 08/12 014 Pulse 79 08/12 0145 Resp 17 08/12 144 Last Documented: Result Date Time Pulse Ox 96 08/12 0419 B/P 131/67 08/12 0419 B/P Mean 92 08/12 0419 Pulse 70 / 0419 O2 Delivery Room air 08/12 144 Temp 36.4 08/12 0145 Resp 17 08/125 Review of Vital Signs Reviewed Free Text PE NotesFree Text PE NotesGeneral/Const: Awake, Alert, No acute distressHead: Atrauamtic, NormocephalicEyes: EOMI. Anicteric sclerae. ENT: Airway patent. Atraumatic. Resp/Chest: Breath sounds normal. Good air movement bilaterally. Normal respiratory effort. No acute respiratory distress. Cardiovascular: Heart rate NL, Regular rhythm, No gallops/rubs appreciated. Abdomen/GI: Non-tender in all abdominal quadrants including epigastrium and right upper quadrant. Monroy's negative. No guarding, No rebound, BS normoactive. No distentionSkin: Warm, DryNeurologic: Alert Oriented X3, Speech normal. Interpretation Diagnostics Lab Results InterpretationResultsLaboratory Tests 08/12/22205:[Embedded Image Not Available]Laboratory Tests: 08/126 0206 Chemistry Sodium (136 - 145 mmol/L) 136 Potassium (3.5 - 5.1 mmol/L) 4.4 Chloride 103 Carbon Dioxide (20 - 31 mmol/L) 24 BUN (9 - 23 mg/dL) 15 Creatinine (0.70 - 1.30 mg/dL) 1.00 Glomerular Filtr Rate (>60 mL/min) >=60 max estimate Glucose (74 - 106 ng/dL) 93 Calcium (8.7 - 10.4 mg/dL) 8.7 Total Bilirubin (0.3 - 1.2 mg/mL) 0.7 AST (<34 I/U) 37 H ALT (10 - 49 U/L) 79 H Total Alk Phosphatase (46 - 116 U/L) 115.0 Troponin I High Sens (38.73 - 80.22 pg/mL) 2.8 L Total Protein (5.7 - 8.2 mg/dL) 7.0 Albumin (3.2 - 4.8 mg/dL) 4.6 Lipase (12 - 53 U/L) 45 Hematology WBC (4.8 - 10.8 x10 3/uL) 12.4 H RBC (4.70 - 6.10 x10 6/uL) 5.16 Hgb (14.0 - 18.0 g/dL) 15.4 Hct (42.0 - 52.0 %) 45.2 MCV (80.0 - 94.0 fL) 87.6 MCH (27 - 31 pg) 29.8 MCHC (33 - 36.5 G/DL) 34.1 RDW (12.9 - 16.9 %) 12.2 L Plt Count (150 - 440 x10 3/uL) 286 MPV (8.9 - 12.4 fL) 9.8 Neut % (Auto) (42.2 - 75.2 %) 54.3 Lymph % (Auto) (20.5 - 51.1 %) 32.4 [place] % (Auto) (1.7 - 9.3 %) 7.1 Eos % (Auto) (0.0 - 7.0 %) 5.3 Baso % (Auto) (0 - 2.5 %) 0.6 Neut # (Auto) (1.80 - 7.70 x10 3/uL) 6.72 Lymph # (Auto) (1.00 - 4.80 x10 3/uL) 4.01 [place] # (Auto) (0.00 - 0.80 x10 3/uL) 0.88 H Eos # (Auto) (0.00 - 0.45 x10 3/uL) 0.65 H Baso # (Auto) (0.0 - 0.20 x10 3/uL) 0.07 Urines Urine Color (YELLOW DISCRIPT) YELLOW Urine Appearance (CLEAR DISCRIPT) CLEAR Urine pH (5.0 - 9.0) 6.0 Ur Specific [place] (1.005 - 1.030) 1.015 Urine Protein (NEGATIVE mg/dL) NEGATIVE Urine Glucose (UA) (NEGATIVE mg/dL) NEGATIVE Urine Ketones (NEGATIVE mg/dL) NEGATIVE Urine Blood (NEGATIVE) NEGATIVE Urine Nitrite (NEGATIVE) NEGATIVE Urine Bilirubin (NEGATIVE) NEGATIVE Urine Urobilinogen (0.2 - 1.0 mg/dL) 0.2 Ur Leukocyte Esterase (NEGATIVE) NEGATIVE Recent Impressions:RADIOLOGY - XR CHEST 1 V 08/12 0150 Report Impression - Status: SIGNED Entered: 08/12/2022 0228 Impression:No acute disease.Impression By: Joann - BAMBI MCKOY M.D.CAT SCAN - CT ABD PELVIS W/CONT 08/12 0400 Report Impression - Status: SIGNED Entered: 08/12/2022 0429 IMPRESSION: 1. Normal appendix. No acute inflammatory process. No other acuteabnormalities. Impression By: [email or web address] - MISAEL DOMINGUEZ M.D. ECG #1 InterpretationText/Dict NoteInterpretation of EKG performed at 0202: Rate 69, sinus rhythm, unremarkable intervals, some nonspecific T wave abnormalities in the inferior leads but no significant ST segment changes definitive for acute ischemia. Re-Evaluation MDM Free Text MDM NotesFree Text MDM Tueml34-iohs-ske gentleman past medical history CAD, hypertension, hyperlipidemia, GERD, paroxysmal A-fib and AAA status post TAVR performed by Dr. Amaya on 08/09presents to the [facility] ER for evaluation as a transfer from [facility] in [place] for evaluation of chest pain, accepted by cardiology Dr. Amaya. States starting on approximately 6 PM yesterday evening, he started experiencingchest pressure radiating to his left neck associated with palpitations. Endorses associated nausea and vomiting and some shortness of breath. Denies any fever, chills, cough, abdominal pain, diarrhea, dysuria or other complaints at this time. Work-up at outlying facility per ER physician there was unremarkable including troponin, EKG. Patient is currently comfortable appearing in hospital bed denying any current chest pain or pressure. Re-Evaluation/Progress #1Text/Dict NoteSleeping comfortably. States pain free still. Time of Re-Eval 0458 ED CourseMedication(s) OrderedMedication(s) Ordered:Diagnostic Agents Sig/Yovani Start time Last Medication Dose Route Stop Time Status Admin Iopamidol 0 .STK-MED ONE 08/12 0402 DC .ROUTE Electrolytic, Caloric, And Lauren Sig/Yovani Start time Last Medication Dose Route Stop Time Status Admin Sodium Chloride 1,000 ML X1ED STA 08/12 0151 DC 08/12 IV 08/12 015 0237 Gastrointestinal Drugs Sig/Yovani Start time Last Medication Dose Route Stop Time Status Admin Metoclopramide HCl 10 MG X1ED STA 08/12 0323 DC 08/12 IV 08/12 0324 0333 Al Hydrox/Mg Hydrox/ 30 ML X1ED STA 08/12 0151 DC 08/12 Simethicone PO 08/12 015 0235 Lidocaine HCl 15 ML Hyoscyamine Sulfate 10 ML Ondansetron HCl 4 MG X1ED STA 08/12 0151 DC 08/12 IV 08/12 0152 0237 Patient Discharge Departure Vital Signs/ConditionVital SignsFirst Documented: Result Date Time Pulse Ox 96 08/12 0145 B/P 127/80 08/12 0145 B/P Mean 95 08/12 0145 O2 Delivery Room air 08/12 0145 Temp 36.4 08/12 0145 Pulse 79 08/12 0145 Resp 17 08/12 014 Last Documented: Result Date Time Pulse Ox 96 08/12 0419 B/P 131/67 08/12 0419 B/P Mean 92 08/12 0419 Pulse 70 08/12 0419 O2 Delivery Room air 08/12 0145 Temp 36.4 08/12 0145 Resp 08/12 014 All vital signs available at the time of this entry have been reviewed. Clinical ImpressionClinical ImpressionPrimary Impression: Epigastric abdominal painSecondary Impressions: Diarrhea, Nausea and vomiting Disposition DecisionDischarge )( Discharged to Home Yes )( Time 0500 )( Date 08/12/22 Discharge/Care PlanCounseled Regarding Diagnosis, Lab results, Imaging studies, Need for follow-up,When to return to ED(Auto) PrescriptionsCurrent Visit ScriptsOndansetron Odt (Zofran Odt) 4 MG PO Q6H PRN PRN NAUSEA/VOMITING Ondansetron Odt (Zofran Odt) 4 MG PO Q6H PRN PRN NAUSEA/VOMITING #15 TABS Patient Instructions Abdominal Pain, ED Diarrhea, Unknown Cause, ED Vomiting (Adult)ReferralsProvider Referral: Jose Martin Calle MD Follow-Up: 1 Week Address: [address] [place] [address] Provider Group: [facility] Follow-Up: 1 Week Discharge NoteI have spoken with the patient and/or caregivers. I have explained the patient'scondition, diagnoses and treatment plan based on the information available to meat this time. I have answered the patient's and/or caregiver's questions and addressed any concerns. The patient and/or caregivers have as good an understanding of the patient's diagnosis, condition and treatment plan as can beexpected at this point. The vital signs have been stable. The patient's condition is stable and appropriate for discharge from the emergency department. The patient will pursue further outpatient evaluation with the primary care physician or other designated or consulting physician as outlined in the discharge instructions. The patient and/or caregivers are agreeable to this planof care and follow-up instructions have been explained in detail. The patient and/or caregivers have received these instructions in written format and have expressed an understanding of the discharge instructions. The patient and/or caregivers are aware that any significant change in condition or worsening of symptoms should prompt an immediate return to this or the closest emergency department or a call to 911. at 0508RPT #:[id number] OF REPORTWilbarger General Hospital department [id number]:53:00P.[id number] ilable for patient [id number]:09:22 [facility]
--- NOTE | 2023-10-31 06:39 | ER ---
Nurse's Notes [facility] Name: Joey Cotton Age: 42 yrs Sex: Male : 1980 Arrival Date: 10/31/2023 Time: 05:59 Bed 19 Private MD: Diagnosis: Panic attack Presentation: 10/30 06:18 Chief complaint: Patient states: For the last 2 days he has been having increasing cm10 anxiety. Pt reports taking his hydroxizine with no relief. Pt denies any new stressors, no SI/HI. Coronavirus screen: Client denies travel out of the [place] in the last 14 days. At this time, the client does not indicate any symptoms associated with coronavirus-19. Ebola Screen: Patient denies travel to an Ebola-affected area in the 21 days before illness onset. No symptoms or risks identified at this time. Initial Sepsis Screen: Does the patient meet any 2 criteria? No. Patient's initial sepsis screen is negative. Does the patient have a suspected source of infection? No. Patient's initial sepsis screen is negative. Risk Assessment: Do you want to hurt yourself or someone else? Patient reports no desire to harm self or others. Onset of symptoms was October 31, 2023. 06:18 Method Of Arrival: Ambulatory cm10 06:18 Acuity: JIHAN 4 cm10 Triage Assessment: 06:20 General: Appears in no apparent distress. comfortable, Behavior is calm, cooperative. cm10 Pain: Denies pain. Neuro: No deficits noted. Level of Consciousness is awake, alert, obeys commands, Oriented to person, place, time, situation, Appropriate for age. Respiratory: No deficits noted. Airway is patent Respiratory effort is even, unlabored, Respiratory pattern is regular, symmetrical. Derm: No deficits noted. Skin is healthy with good turgor, Skin is pink, warm \T\ dry. Musculoskeletal: No deficits noted. Range of motion: intact in all extremities. Historical: - Allergies: 06:20 Iodinated Contrast Media - IV Dye; cm10 - PMHx: 06:20 Hypertensive disorder; Anxiety; cm10 - PSHx: 06:20 Cholecystectomy; Stented artery; cm10 - Immunization history:: Adult Immunizations up to date. - Infectious Disease History:: Denies. - Social history:: Smoking status: unknown. - Family history:: not pertinent. Screenin:21 [facility] ED Fall Risk Assessment (Adult) History of falling in the last 3 months, cm10 including since admission No falls in past 3 months (0 pts) Confusion or Disorientation No (0 pts) Intoxicated or Sedated No (0 pts) Impaired Gait No (0 pts) Mobility Assist Device Used No (0 pt) Altered Elimination No (0 pt) Score/Fall Risk Level 0 - 2 = Low Risk Oriented to surroundings, Maintained a safe environment, Hourly rounding (assess needs \T\ fall precautionary measures) done. Abuse screen: Denies threats or abuse. Denies injuries from another. Nutritional screening: No deficits noted. Tuberculosis screening: No symptoms or risk factors identified. Vital Signs: 06:18 BP 131 / 89; Pulse 64; Resp 16 S; Temp 97.3(IR); Pulse Ox 100% on R/A; Weight 99.79 kg; cm10 Height 6 ft. 1 in. ; Pain 0/10; 06:18 Body Mass Index 29.03 (99.79 kg, 185.42 cm) cm10 06:18 Pain Scale: Adult cm10 ED Course: 06:03 Patient arrived in ED. mg5 06:06 Jose Martin Pardo MD is Attending Physician. rt 06:18 Cadence Bush, RN is Primary Nurse. cm10 06:20 Triage completed. cm10 06:21 Arm band placed on Patient placed in a hallway bed, on a stretcher, on pulse oximetry. cm10 06:21 Patient has correct armband on for positive identification. Bed in low position. Call cm10 light in reach. Side rails up X2. Provided Education on: ER process and procedures.. Pulse ox on. NIBP on. Door closed. Lights dimmed. 06:56 No provider procedures requiring assistance completed. Patient did not have IV access cm10 during this emergency room visit. Administered Medications: No medications were administered Medication: 06:21 VIS not applicable for this client. cm10 Outcome: 06:38 Discharge ordered by . rt 06:57 Discharged to home ambulatory, cm10 06:57 Condition: good 06:57 Discharge instructions given to patient, Instructed on discharge instructions, follow up and referral plans. medication usage, Demonstrated understanding of instructions, follow-up care, medications, Prescriptions given X 1, 06:57 Patient left the ED. cm10 Signatures: Jose Martin Pardo MD MD rt Cadence Bush, RN RN cm10 Stephanie Owens mg5
--- NOTE | 2023-10-31 06:39 | EDPHYS ---
Physician Documentation [facility] Name: Joey Cotton Age: 42 yrs Sex: Male : 1980 Arrival Date: 10/31/2023 Time: 05:59 Bed 19 Private MD: ED Physician Jose Martin Pardo HPI: 10/30 06:57 This 42 yrs old Male presents to ER via Ambulatory with complaints of Medication rt Refill, Anxiety. 06:57 Patient presents to the ED with reported anxiety disorder while at work. Patient states rt that he has been on hydroxyzine, states is not adequately controlling his symptoms. States that currently he has no symptoms at this time. Denies SI, HI. Denies other acute complaints, symptoms are mild in severity, no other aggravating or alleviating factors.. Historical: - Allergies: 06:20 Iodinated Contrast Media - IV Dye; cm10 - PMHx: 06:20 Hypertensive disorder; Anxiety; cm10 - PSHx: 06:20 Cholecystectomy; Stented artery; cm10 - Immunization history:: Adult Immunizations up to date. - Infectious Disease History:: Denies. - Social history:: Smoking status: unknown. - Family history:: not pertinent. ROS: 06:58 Constitutional: Negative for fever, chills, and weight loss, Cardiovascular: Negative rt for chest pain, palpitations, and edema, Respiratory: Negative for shortness of breath, cough, wheezing, and pleuritic chest pain, Abdomen/GI: Negative for abdominal pain, nausea, vomiting, diarrhea, and constipation, MS/Extremity: Negative for injury and deformity, Skin: Negative for injury, rash, and discoloration, Neuro: Negative for headache, weakness, numbness, tingling, and seizure, 06:58 Psych: Positive for anxiety, Negative for suicidal ideation, Exam: 06:58 Constitutional: This is a well developed, well nourished patient who is awake, alert, rt and in no acute distress. Head/Face: Normocephalic, atraumatic. Chest/axilla: Normal chest wall appearance and motion. Nontender with no deformity. No lesions are appreciated. Cardiovascular: Regular rate and rhythm with a normal S1 and S2. No gallops, murmurs, or rubs. Normal PMI, no JVD. No pulse deficits. Respiratory: Lungs have equal breath sounds bilaterally, clear to auscultation and percussion. No rales, rhonchi or wheezes noted. No increased work of breathing, no retractions or nasal flaring. Abdomen/GI: Soft, non-tender, with normal bowel sounds. No distension or tympany. No guarding or rebound. No evidence of tenderness throughout. Skin: Warm, dry with normal turgor. Normal color with no rashes, no lesions, and no evidence of cellulitis. MS/ Extremity: Pulses equal, no cyanosis. Neurovascular intact. Full, normal range of motion. Neuro: Awake and alert, GCS 15, oriented to person, place, time, and situation. Cranial nerves II-XII grossly intact. Motor strength 5/5 in all extremities. Sensory grossly intact. Cerebellar exam normal. Normal gait. Vital Signs: 06:18 BP 131 / 89; Pulse 64; Resp 16 S; Temp 97.3(IR); Pulse Ox 100% on R/A; Weight 99.79 kg; cm10 Height 6 ft. 1 in. ; Pain 0/10; 06:18 Body Mass Index 29.03 (99.79 kg, 185.42 cm) cm10 06:18 Pain Scale: Adult cm10 MDM: 06:29 Patient medically screened. rt 06:58 Data reviewed: vital signs, nurses notes. Test considered but Not performed: Other rt Details Stable vital signs, currently asymptomatic, EKG, labs not indicated.. Care significantly affected by the following chronic conditions: Hypertension. Counseling: I had a detailed discussion with the patient and/or guardian regarding the historical points, exam findings, and any diagnostic results supporting the discharge/admit diagnosis, the need for outpatient follow up, to return to the emergency department if symptoms worsen or persist or if there are any questions or concerns that arise at home. Administered Medications: No medications were administered Disposition Summary: 10/31/23 06:38 Discharge Ordered Notes: Location: Home rt Problem: an ongoing problem rt Symptoms: have improved rt Condition: Stable rt Diagnosis - Panic attack rt Followup: rt - With: Private Physician - When: 5 - 6 days - Reason: Discharge Instructions: - Discharge Summary Sheet rt - Panic Attack rt Forms: - Medication Reconciliation Form rt - Antibiotic Education rt - Prescription Opioid Use rt - Patient Portal Instructions rt - Leadership Thank You Letter rt Prescriptions: - lorazepam 1 mg Oral tablet - take 1 tablet ORAL route every 6 hours as needed for anxiety; 15 tablet; rt Refills: 0, Product Selection Permitted Signatures: Jose Martin Pardo MD MD rt Cadence Bush RN RN cm10
[2023-10-31 07:20] VITALS: BP 131/89; TEMP 97.3; O2SAT 100
== END 2023-10-31 06:57 | disposition home or self-care (01) ==
LOC: ER 05:59
DX: F41.0 Panic disorder [episodic paroxysmal anxiety] (principal); Z91.041 Radiographic dye allergy status
CPT/HCPCS: 99283